=== PATIENT | female | born 1965 | race Caucasian/White ===

== ENCOUNTER 2025-05-17 19:19 | Emergency (ER) | payer MEDICAID ==
[~2025-05-17] VITALS: Ht 167.6 cm; Wt 106.1 kg
[2025-05-17] MEDS: HYDROCODONE/APAP 5MG-325MG TAB PO ONE (20:58)
[2025-05-17] MEDS: CYCLOBENZAPRINE HCL 10 MG TAB PO ONE (21:53)
[2025-05-17] MEDS: ACETAMINOPHEN 325 MG TAB PO ONE (21:55)
[2025-05-17 22:18] VITALS: PULSE 87; RESP 16; TEMP 97.7
[2025-05-17 22:21] VITALS: BP 131/75; PULSE 87; RESP 16; TEMP 97.7; O2SAT 95
[2025-05-17] MEDS ORDERED: FIORICET 50-301 EACH PO (22:21)
== END 2025-05-17 22:24 | disposition home or self-care (01) ==
LOC: FSED 19:25
DX: R51.9 Headache, unspecified (principal); M25.551 Pain in right hip; M79.651 Pain in right thigh; W18.39XA Other fall on same level, initial encounter; Y92.89 Other specified places as the place of occurrence of the external cause; I10 Essential (primary) hypertension; E11.9 Type 2 diabetes mellitus without complications; E78.5 Hyperlipidemia, unspecified; M06.9 Rheumatoid arthritis, unspecified; M79.7 Fibromyalgia
CPT/HCPCS: 70450; 99284